=== PATIENT | female | born 1965 | race Caucasian/White ===

== ENCOUNTER 2018-07-06 06:52 | Day surgery (SDC) | payer OTHER ==
[~2018-07-06 06:52] MED LIST: ACETAMINOPHEN 1,000 MG/100 ML BTL IVPB ONE
[2018-07-06] MEDS ORDERED: ONDANSETRON HCL IV 4 MG/2 ML VIAL IVP ONE (06:53)
[2018-07-06] MEDS ORDERED: GLYCOPYRROLATE 0.2 MG/ML ML IV ONE (06:53)
[2018-07-06] MEDS ORDERED: MIDAZOLAM HCL 2MG/2ML VIAL IV ONE (06:53)
[2018-07-06] MEDS ORDERED: DEXAMETHASONE 4 MG/ML 1ML VIAL IVP ONE (06:53)
[2018-07-06] MEDS ORDERED: SEVOFLURANE 250 ML INH ONE (06:53)
[2018-07-06] MEDS ORDERED: PROPOFOL 10 MG/ML VIAL IV ONE (06:53)
[2018-07-06] MEDS ORDERED: LIDOCAINE 2% MDV (20MG/ML) 20ML VIAL IV ONE (06:53)
[2018-07-06] MEDS ORDERED: FENTANYL PF 100MCG/2ML VIAL IV ONE (06:53)
[2018-07-06] MEDS ORDERED: RINGERS SOLUTION,LACTATED 1,000 ML IV ONE (07:20)
[2018-07-06] MEDS ORDERED: BUPIVACAINE 0.25% W/EPI MPF 30ML VIAL SQ ONE (09:00)
[2018-07-06] MEDS ORDERED: HYDROCODONE/APAP 5/325MG TABLET PO ONE (09:48)
--- NOTE | 2018-07-07 07:20 | Operative Note ---
DATE OF SURGERY: 07/06/2018 SURGEON: Lex Brooks DO PREOPERATIVE DIAGNOSIS: Torn medial meniscus of the right knee. POSTOPERATIVE DIAGNOSES: 1. Torn medial meniscus of the right knee. 2. 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 OPERATION: 1. Arthroscopic partial medial meniscectomy, right knee. 2. Arthroscopic chondroplasty of the lateral femoral condyle, right knee. DESCRIPTION OF PROCEDURE: This 53-year-old female was taken to the operating room and placed in the supine position on the operating room table where general anesthesia was induced. The right lower extremity was elevated, exsanguinated, and the tourniquet inflated to 300 mmHg. Arthroscopic knee mena applied. Right knee prepped with Hibiclens and draped in the usual sterile fashion. An inferolateral portal was established for the 4 mm arthroscope, and initial evaluation of the joint demonstrated normal appearance of the suprapatellar pouch. There was very mild chondromalacia of the median ridge of the patella. It was not grossly unstable and it was not further disturbed. This is a very small lesion of approximately 0.5 cm. The trochlea appeared to be normal. The medial and lateral gutters were examined and found to be normal. The medial compartment was entered, and a complex tear of the posterior horn of the medial meniscus was present with both flap and horizontal cleavage tears. The apex of the tear being at approximately the 11-o'clock position. We then resected to the apex and tapered in each direction to form a smooth contoured surface. There was approximately 2-3 mm of meniscal rim remaining at the apex. The articular cartilage of the medial femoral condyle and tibial plateau appeared relatively normal. The intracondylar notch was examined. The ACL was seen to be normal. The lateral compartment was entered, and grade 3 chondromalacia of the center of the weightbearing surface of the lateral femoral condyle was present. This lesion being approximately 1.5 cm in greatest dimension with a softening of the articular cartilage of the tibial plateau. No disruption. The lateral meniscus appeared normal. Chondroplasty was performed to stabilize the articular cartilage of the lateral femoral condyle. The joint was copiously irrigated and suctioned. All areas reexamined. The instruments were removed. The portals infiltrated with 0.25% Marcaine with epinephrine. Sterile dressings applied, tourniquet and knee mena released, and the patient taken to the recovery room in satisfactory condition. GROSS PATHOLOGY: This patient demonstrated a complex tear of the posterior horn of the medial meniscus as described above. Grade 3 chondromalacia of the center of the weightbearing surface of the lateral femoral condyle about 1.5 cm in greatest dimension and a small mild grade 2 disruption of the articular cartilage in median ridge of the patella as described above. CC: DO CAMI Thomas
== END 2018-07-06 10:15 | disposition home or self-care (01) ==
LOC: SUR 06:52
PROVIDERS: ATTEND Orthopaedic Surgery
DX: S83.231A Complex tear of medial meniscus, current injury, right knee, initial encounter (principal); M22.41 Chondromalacia patellae, right knee
CPT/HCPCS: 29881; 01400; J2405; J3010; J7120